=== PATIENT | female | born 1985 | race Caucasian/White ===

== ENCOUNTER 2016-11-07 11:28 | Outpatient (CLI) | payer MEDICAID ==
[~2016-11-07] VITALS: Ht 152.4 cm; Wt 80.4 kg
[~2016-11-07 11:28] MED LIST: ACET500C5 PO; ALPR0.25 PO; CEPH-443 PO
[2016-11-07 11:48] VITALS: Ht 152.4 cm; Wt 80.4 kg
[2016-11-07 13:01] LABS: ADD UMIC YES; URINE BILIRUBIN (Dip) NEGATIVE (NEGATIVE); URINE BLOOD (Dip) TRACE (NEGATIVE); URINE COLOR LT. YELLOW (YELLOW); URINE KETONES (Dip) TRACE (NEGATIVE); URINE LEUKOCYTE ESTERASE (Dip) TRACE (NEGATIVE); URINE NITRITE (Dip) POSITIVE (NEGATIVE); URINE TOTAL PROTEIN (Dip) NEGATIVE (NEGATIVE); URINE UROBILINOGEN (Dip) 0.2 E.U./dL (0.1-1.0)
[2016-11-07 13:09] LABS: BACTERIA,URINE MANY
[2016-11-07 13:10] LABS: URINE RBCS 0-2 /HPF (0)
[2016-11-07 13:14] LABS: BASOPHILS % 0.3 % (0.0-2.0); EOSINOPHILS # 0.2 10^3/ul (0.0-0.5); HEMATOCRIT 31.6 % (37.0-47.0); HEMOGLOBIN 10.7 g/dl (12.0-16.0); LYMPHOCYTES # 1.1 10^3/ul (0.8-2.9); LYMPHOCYTES % 13.8 % (15.0-51.0); MEAN CORPUSCULAR HEMOGLOBIN 30.9 pg (29.0-33.0); MEAN CORPUSCULAR VOLUME 90.9 fl (82.0-101.0); MEAN PLATELET VOLUME 9.4 fl (7.4-10.4); MONOCYTE # 0.5 10^3/ul (0.3-0.9); MONOCYTES % 6.6 % (0.0-11.0); NEUTROPHIL # 6.2 10^3/ul (1.6-7.5); NEUTROPHILS % 77.3 % (39.0-77.0); PLATELET COUNT 190 10^3/UL (140-440); RED BLOOD COUNT 3.48 10^6/ul (4.20-5.40); RED CELL DISTRIBUTION WIDTH 13.9 % (11.5-14.5)
[2016-11-07 13:15] LABS: CONDITION 1
[2016-11-07 13:21] LABS: ALBUMIN 3.3 g/dl (3.3-4.9)
[2016-11-07 13:24] LABS: ALKALINE PHOSPHATASE 101 IU/L (42-121); ASPARTATE AMINO TRANSFERASE 15 IU/L (15-46); BILIRUBIN,INDIRECT 0.1 mg/dl (0-1.1); BILIRUBIN,TOTAL 0.1 mg/dl (0.2-1.3); TOTAL PROTEIN 6.1 g/dl (6.1-8.1)
[2016-11-07 13:25] LABS: ALANINE AMINOTRANSFERASE 14 IU/L (13-69)
--- NOTE | 2016-11-07 13:36 | RADRPT ---
PROCEDURE: US Obstetrical, limited CLINICAL INDICATION: P T L, SIENNA TECHNIQUE: Multiple real-time images were acquired of the patient's maternal abdomen utilizing a curved array transducer. COMPARISON: 10/16/2016 breech FINDINGS: There is a single live intrauterine fetus positioned breech. The placenta is implanted anteriorly and is grade 1. There is no placenta previa or abruptio. The cervical length measures 4.2 cm. There appears to be a sufficient amniotic fluid. The heart rate is 148 beats per minute. Measurements: BPD: 5.32, corresponds to a age of 22 weeks 1 day Head circumference: 19.48, corresponds to a age of 21 weeks 5 days Abdominal circumference: 19.03, corresponds to a age of 23 weeks 5 days Femoral length: 4.01, corresponds to a age of 23 weeks 0 days Average age by ultrasound: 22 weeks 5 days plus or minus 1 week 4 days Estimated weight: 570.4 g IMPRESSION: 1. Single live initiating fetus, breech presentation. 2. Anterior placenta, grade 1, no previa. 3. Estimated age by ultrasound 22 weeks 5 days plus or minus 1 week 4 days. This is compatibl e with adequate growth since the previous sonogram. The estimated date of delivery based on today's sonogram is 03/08/2017. Physician Chetan Date Time Electronically viewed and signed by Physician Chetan on 11/07/2016 13:35 RH/
--- NOTE | 2016-11-07 21:33 | QN ---
Documentation Comment 31 years old female with IUP at 22 wekes and 1 days by today's ultrasound and no care presented with complaint of cramping and spotting. She had moved about one month ago from [place]. Did not know she is . Spotting and cramping started after intercourse last night. She also complains of whole body itching including palms and soles. She denies any rash. She denies any fever, rash, illness, arthritis when she was in [place] or after return. She does not remember any mosquito bite. GA: A&O, NAD Abdomen: Soft, non tender, gravid Fundal height with 22-24 weeks Comparison with prior us in this about 3 weeks go, adequate interval growth. SSE: no blood seen in the vault Cervix looks closed and long No contractions seen on the monitor NST: appropriate for premature fetus at this GA ROCEDURE: US Obstetrical, limited CLINICAL INDICATION: P T L, SIENNA TECHNIQUE: Multiple real-time images were acquired of the patient's maternal abdomen utilizing a curved array transducer. COMPARISON: 10/16/2016 breech FINDINGS: There is a single live intrauterine fetus positioned breech. The placenta is implanted anteriorly and is grade 1. There is no placenta previa or abruptio. The cervical length measures 4.2 cm. There appears to be a sufficient amniotic fluid. The heart rate is 148 beats per minute. Measurements: BPD: 5.32, corresponds to a age of 22 weeks 1 day Head circumference: 19.48, corresponds to a age of 21 weeks 5 days Abdominal circumference: 19.03, corresponds to a age of 23 weeks 5 days Femoral length: 4.01, corresponds to a age of 23 weeks 0 days Average age by ultrasound: 22 weeks 5 days plus or minus 1 week 4 days Estimated weight: 570.4 g IMPRESSION: 1. Single live initiating fetus, breech presentation. 2. Anterior placenta, grade 1, no previa. 3. Estimated age by ultrasound 22 weeks 5 days plus or minus 1 week 4 days. This is compatible with adequate growth since the previous sonogram. The estimated date of delivery based on today's sonogram is 03/08/2017. Physician Chetan Date Time Electronically viewed and signed by Dominik Ford Physician on 11/07/2016 13:35 RH/ CC: AD NOYOLA MD RH positive Assessment: IUP at 22 weeks and 1 days No care post coital spotting, resolved. No evidence of PTL or PPROM Asymptomatic Moved from [place] about one month ago, at risk for Zika. Contacted Department of public health and labs ordered including Zika Rt- PCR of urine and serum as well as IGM for Zika all labs ordered Patient was informed about importance of stablishing care as soon as possibe Resources about clinics that she can start and establish care provided Strict PTL precaution and kick discussed RTC in 5 days for follow up of the lab at Triage Contact clinics MICHAEL to establish care will transfer her records once started care there Whole body itching without rash, LFT and bile acids obtained and sent IDRIS Flores who was fluent in dominican interpreted and patient verbalized understanding all above discussion and precaution AD NOYOLA MD Nov 07, 2016 21:33
[2016-11-09 12:23] LABS: RUBELLA ANTIBODY - IGG 3.39
[2016-11-13 16:25] LABS: CHENODEOXYCHOLIC ACID 3.6 umol/L (< OR = 3.1); CHOLIC ACID <0.5 umol/L (< OR = 1.8); DEOXYCHOLIC ACID 0.5 umol/L (< OR = 2.4); TOTAL BILE ACIDS 4.1 umol/L (< OR = 6.8)
== END 2016-11-07 16:45 | disposition home or self-care (01) ==
LOC: OBT 11:28 → L-D 11:29 → OBT 16:45
PROVIDERS: ATTEND Obstetrics & Gynecology Obstetrics
DX: O26.852 Spotting complicating pregnancy, second trimester (principal); N93.0 Postcoital and contact bleeding; O26.892 Other specified pregnancy related conditions, second trimester; Z3A.22 22 weeks gestation of pregnancy
CPT/HCPCS: 36415; 76815; 76817; 80076; 81001; 83789; 85025; 86592; 86703; 86762; 86900; 86901; 87086; 87340; Z7500; 81003; G0463

== ENCOUNTER 2016-11-11 14:47 | Emergency (ER) | payer MEDICAID ==
[~2016-11-11] VITALS: Wt 77.3 kg
[2016-11-11 14:52] VITALS: Wt 77.3 kg
[2016-11-11] MEDS ORDERED: NITR-58 PO (15:10)
--- NOTE | 2016-11-11 15:17 | ERD ---
ER Documentation Chief Complaint Date/Time DATE: 11/11/16 TIME: 15:14 Chief Complaint needs rx for uti. see note. HPI Patient is a 31-year-old female, with IUP, approximately 22 weeks, who presents to the emergency department for a prescription. Patient was seen by [facility] on 11/07/2016 in labor and delivery and at that time patient was diagnosed with a normal . Patient was called today by labor and delivery and told that her urine culture was positive for infection. Patient was notified that she should go to the ER for prescription of her urinary tract infection. Patient denies any fever, chills, nausea, vomiting, abdominal pain, dysuria or diarrhea. Patient denies any excessive vaginal bleeding, excessive vaginal discharge or pelvic pain. Patient states that her symptoms have improved since previous visit on 11/07/16. ROS All systems reviewed and are negative except as per history of present illness. Medications Home Meds Active Scripts Nitrofurantoin Monohyd Macrocr* (Macrobid*) 100 Mg Capsr, 100 MG PO BID for 7 Days, CAP Prov:KRISTINA KENNEDY PA-C 11/11/16 Reported Medications [none] Unknown Strength No Conflict Check 07/18/16 Discontinued Scripts Acetaminophen* (Tylophen*) 500 Mg Capsule, 1 CAP PO Q6H Y for PAIN AND OR ELEVATED TEMP, #20 CAP Prov:PURNIMA LARES NP 10/17/16 Cephalexin* (Keflex*) 500 Mg Capsule, 500 MG PO QID for 7 Days, CAP Prov:PURNIMA LARES NP 10/17/16 Acetaminophen* (Tylophen*) 500 Mg Capsule, 1 CAP PO Q6H Y for PAIN AND OR ELEVATED TEMP, #20 CAP Prov:PURNIMA LARES NP 07/30/16 Cephalexin* (Keflex*) 500 Mg Capsule, 500 MG PO QID for 7 Days, CAP Prov:PURNIMA LARES NP 07/30/16 Alprazolam* (Xanax*) 0.25 Mg Tablet, 0.25 MG PO Q8H Y for ANXIETY, #10 TAB Prov:PURNIMA LARES NP 07/18/16 Allergies Allergies: Coded Allergies: No Known Allergy (Unverified , 07/18/16) PMhx/Soc History of Surgery: Yes (cholecystectomy) Anesthesia Reaction: No Hx Neurological Disorder: No Hx Respiratory Disorders: No Hx Cardiac Disorders: No Hx Psychiatric Problems: No Hx Miscellaneous Medical Probl: No Hx Alcohol Use: No Hx Substance Use: No Hx Tobacco Use: No Physical Exam Vitals Vital Signs Date Time Temp Pulse Resp B/P Pulse Ox O2 Delivery O2 Flow Rate FiO2 11/11/16 14:52 98.5 89 20 127/62 100 Physical Exam General: Well-developed, well-nourished female. Appears in no acute distress. Head: Normocephalic, atraumatic. Eyes: Pupils are equally reactive bilaterally. EOMs grossly intact. No conjunctival erythema. ENT: Moist mucous membranes. Neck: Supple. No lymphadenopathy or thyromegaly. No meningeal signs. Lungs: Clear to auscultation bilaterally. No rhonchi, wheezing, rales or coarse breath sounds. Heart: Regular rate and rhythm. No murmurs, rubs or gallops. Abdomen: Soft, nontender, and nondistended. No rebound tenderness, no guarding. (-) McBurneys point tenderness. No CVA tenderness. Extremities: No pedal edema, unilateral leg swelling. 5/5 strength in all extremities. Neurologic: Alert and oriented x3. Moving all four extremities. Normal speech. Steady gait. (-) Brudzinski sign- no flexion of the hips and knees noted with neck flexion. (-) Kernigs sign- patient able to extend knee to 180 degrees with hip flexion, no hamstring stiffness noted. Skin: Normal color. Warm and dry. No rashes or lesions. Procedures/MDM MEDICAL DECISION MAKING: This is a 31-year-old female who presents for prescription of positive urine cultures. Patient was seen in labor and delivery on 11/07/16. Patient was called back today for positive urine culture result. Vital signs were reviewed. Patient was afebrile. She was not hypoxic. Upon further evaluation of urine culture results in EMR, it shows that the patient's urine specimen is sensitive to nitrofurantoin. Patient will be given with prescription of nitrofurantoin. I consulted the laborist satellite communications engineer who stated that this medication was safe during . Given these findings, the patients presentation is most consistent with urinary tract infection. I have a much lower clinical concern for pyelonephritis or nephrolithiasis. Low suspicion for placenta previa, placental rupture, vasa previa given that the patient denies any vaginal bleeding. PRESCRIPTIONS: Nitrofurantoin DISCHARGE: At this time, patient is stable for discharge and outpatient management. I have instructed the patient to follow-up with his/her primary care physician in 1-2 days. Patient should repeat UA in 2 weeks to check for resolution of urinary tract infection. If symptoms persist, patient may need to see a specialist for further examinations and testing. I have instructed the patient to promptly return to the ER at any time for any new or worsening symptoms including increased pain, fever, nausea, vomiting, urinary changes or weakness. The patient and/or family expressed understanding of and agreement with this plan. All questions were answered. Home care instructions were provided. Departure Diagnosis: Primary Impression: UTI (urinary tract infection) Urinary tract infection type: site unspecified Hematuria presence: without hematuria Qualified Code: N39.0 - Urinary tract infection without hematuria, site unspecified Additional Impression: Encounter for medication refill Condition: Stable Patient Instructions: Understanding Urinary Tract Infections (UTIs) Referrals: COMMUNITY CLINICS YOU HAVE RECEIVED A MEDICAL SCREENING EXAM AND THE RESULTS INDICATE THAT YOU DO NOT HAVE A CONDITION THAT REQUIRES URGENT TREATMENT IN THE EMERGENCY DEPARTMENT. FURTHER EVALUATION AND TREATMENT OF YOUR CONDITION CAN WAIT UNTIL YOU ARE SEEN IN YOUR DOCTORS OFFICE WITHIN THE NEXT 1-2 DAYS. IT IS YOUR RESPONSIBILITY TO MAKE AN APPOINTMENT FOR FOLOW-UP CARE. IF YOU HAVE A PRIMARY DOCTOR --you should call your primary doctor and schedule an appointment IF YOU DO NOT HAVE A PRIMARY DOCTOR YOU CAN CALL OUR PHYSICIAN REFERRAL HOTLINE AT IF YOU CAN NOT AFFORD TO SEE A PHYSICIAN YOU CAN CHOSE FROM THE FOLLOWING PENDING SALE TO [facility] [address] [facility] [address] [facility] [address] [facility] [address] [facility] [address] [facility]. [facility]. [address] [facility]. [facility] YOU HAVE RECEIVED A MEDICAL SCREENING EXAM AND THE RESULTS INDICATE THAT YOU DO NOT HAVE A CONDITION THAT REQUIRES URGENT TREATMENT IN THE EMERGENCY DEPARTMENT. FURTHER EVALUATION AND TREATMENT OF YOUR CONDITION CAN WAIT UNTIL YOU ARE SEEN IN YOUR DOCTORS OFFICE WITHIN THE NEXT 1-2 DAYS. IT IS YOUR RESPONSIBILITY TO MAKE AN APPOINTMENT FOR FOLOW-UP CARE. IF YOU HAVE A PRIMARY DOCTOR --you should call your primary doctor and schedule and appointment IF YOU DO NOT HAVE A PRIMARY DOCTOR YOU CAN CALL OUR PHYSICIAN REFERRAL HOTLINE AT . IF YOU CAN NOT AFFORD TO SEE A PHYSICIAN YOU CAN CHOSE FROM THE FOLLOWING [facility] INSTITUTIONS: [facility] [address] [place] [address] [facility] [address] [place] [address] [facility] [address] [place] [address] INSTRUMENT ADJUST[place] [address] [facility] [address] [place] [address] OFFICE FAX TOYA MAGALLON [address] [place] [address] [address] [place] [place] [address] [place] [address] [address] [address] [facility], [address], [facility] [address] [address] [place] [address] [facility] [address] [place] [address] [phone] [address] [facility] [address] - [address]ZMA [address], [facility] [address] [address] [address] [facility]. [address], [facility] [id number], [address] [address] [place] [address] Additional Instructions: Llame al doctor MAANA y sridhar kushal ALFONZO PARA DENTRO DE 1-2 RANDALL.Dgale a la secretaria que nosotros le instruimos hacer esta alfonzo.Avise o llame si kennedy condicin se empeora antes de la alfonzo. Regresa aqui si peor o no mejor. Jaye VELA referral listo para doctors. KRISTINA KENNEDY PA-C Nov 11, 2016 15:17
== END 2016-11-11 15:23 | disposition home or self-care (01) ==
LOC: FTE 14:47 → E/R 15:23
DX: O23.42 Unspecified infection of urinary tract in pregnancy, second trimester (principal); Z3A.22 22 weeks gestation of pregnancy; Z76.0 Encounter for issue of repeat prescription
CPT/HCPCS: 99283

== ENCOUNTER 2016-12-18 22:05 | Outpatient (CLI) | payer MEDICAID ==
--- NOTE | 2016-11-07 21:27 | QN ---
AD NOYOLA MD Nov 07, 2016 21:27
[~2016-12-18] VITALS: Ht 152.4 cm; Wt 81.9 kg
[~2016-12-18 22:05] MED LIST changes: -ACET500C5 PO; -ALPR0.25 PO; -CEPH-443 PO; +NITR-58 PO
[2016-12-18 22:14] VITALS: BP 131/59; PULSE 102; RESP 18
[2016-12-18 22:19] LABS: URINE BLOOD (Dip) POC Trace-intact (NEGATIVE)
[2016-12-18] MEDS ORDERED: PRENAT PO (22:19)
--- NOTE | 2016-12-18 23:04 | HP ---
Date/Time of Note Date/Time of Note DATE: 12/18/16 TIME: 23:02 OB - History Hx of Present Free Text/Dictation Pt is a 31yo at 28+1wks GA who presents with c/o abdominal cramping and lower abdominal pain since 1500. Pt denies inciting factors. Last intercourse yesterday morning. Reports normal FM, denies LOF, VB, or dysuria. Hx of full-term followed by an "8 month" PROCEDURE: Ultrasound OB cervical length CLINICAL INDICATION: labor TECHNIQUE: Sonographic evaluation to assess the cervical length was performed. Transabdominal and trans vaginal imaging of the gravid uterus was performed. COMPARISON: OB ultrasound dated 11/07/2016 FINDINGS: Single live intrauterine in cephalic position with cardiac activity at 143 beats per minute is identified. The length of the cervix on transvaginal ultrasound equals 4.3 cm. The placenta is anterior and grade 1 and free of internal cervical os. IMPRESSION: Single live intrauterine . Length of cervix equals 4.3 cm. Care: Good Care Past Family/Social History * Past Medical, Surgical, Family and Obstetric Histories reviewed from chart. OB Admission Exam Vital Signs Vital Signs Vital Signs Date Time Temp Pulse Resp B/P Pulse Ox O2 Delivery O2 Flow Rate FiO2 12/18/16 22:14 98.4 102 18 131/59 Room Air Physical Exam Abdomen: WNL (soft, nontender, neg CVAT b/l) Heart Rate: 130's Accelerations: Accelerations Present Decelerations: No Decelerations Varibility: Moderate Contractions on Admission: None OB Assessment/Plan Other Assessment: Abdominal cramping w/o evidence of PTL Other plan: Given CL >4cm, neg FFN and toco w/o UCs, unlikely pt has PTL FWB reassuring Pt appropriate for d/c home with f/up as scheduled PTL, PPROM precautions reviewed Questions answered to patient's satisfaction RAFFI LARSON MD Dec 18, 2016 23:03
--- NOTE | 2016-12-19 00:13 | RADRPT ---
PROCEDURE: Ultrasound OB cervical length CLINICAL INDICATION: labor TECHNIQUE: Sonographic evaluation to assess the cervical length was performed. Transabdominal and trans vaginal imaging of the gravid uterus was performed. COMPARISON: OB ultrasound dated 11/07/2016 FINDINGS: Single live intrauterine in cephalic position with cardiac activity at 143 beats per minute is identified. The length of the cervix on transvaginal ultrasound equals 4.3 cm. The plac enta is anterior and grade 1 and free of internal cervical os. IMPRESSION: Single live intrauterine . Length of cervix equals 4.3 cm. RPTAT: HJES .Rico Szymanski MD, MD Date Time Electronically viewed and signed by .Rico Szymanski MD, MD on 12/19/2016 00:12 .S/
--- NOTE | 2016-12-19 00:38 | TRIAGE ---
OB Triage Datetime Report Generated by CPN: 12/19/2016 00:38 Datetime: 12/19/2016 00:24 Comments: STRIP REVIEWED BY DR LARSON Datetime: 12/19/2016 00:16 Pain Assessment Pain Scale: 4 Pain Presence: Intermittent Pain Type: Cramping Pain Location: Abdomen Datetime: 12/19/2016 00:00 Stage of : OB Triage Labor Evaluation Frequency: NONE Monitor Mode: External Heart Rate FHR Baseline Rate: 135 Monitor Mode: External US Variability: Moderate 6-25 bpm Accelerations: 15X15 Decelerations: None Datetime: 12/18/2016 23:00 Stage of : OB Triage Labor Evaluation Frequency: NONE Monitor Mode: External Heart Rate FHR Baseline Rate: 135 Monitor Mode: External US Variability: Moderate 6-25 bpm Accelerations: 15X15 Decelerations: None Category: Category I Datetime: 12/18/2016 22:15 Stage of : OB Triage Temperature Route: Oral Pain Assessment Pain Scale: 8 Pain Presence: Intermittent Pain Type: Cramping; Contraction Pain Location: Abdomen Datetime: 12/18/2016 22:12 Assessment Type: Triage Time of Arrival: 12/19/2016 21:58 EGA: 28.2 Arrived By: Wheelchair Arrived From: Home Chief Complaint: ABDOMINAL PAIN Movement: Present Contractions: Regular Time Contractions Began: 12/18/2016 15:00 Contractions: Q5MIN Rupture of Membranes: Denies Vaginal Bleeding: None Vaginal Discharge: Denies Recent Sexual Intercouse: Denies Abdominal Trauma: Not Applicable Patient Complaints: Contractions; Cramping Time Provider Notified: 12/19/2016 22:26 Provider Notified: MARSHA Initial Plan: FFN, CVL Maternal Assessment Level of Consciousness: Fully Conscious DTR's/Clonus: DTRs 2+; No Clonus Headache: Denies Blurred Vision: No Respiratory Effort: Unlabored; Regular Rhythm; Equal Expansion Breath Sounds, Left: Clear and Equal Breath Sounds, Right: Clear and Equal Nausea/Vomiting: Denies RUQ Epigastric Pain: Denies Lower Extremities Edema: None Degree: None Upper Extremities Edema: None Facial Edema: None Fall Risk Assessment History of Falling: (0) No Secondary Diagnosis: (0) No Ambulatory Aid: (0) Bedrest/Nurse Assist IV Therapy: (0) No Gait: (0) Normal/Bedrest/Immobile Mental Status: (0) Oriented to Own Ability Fall Score: 0 Fall Risk Score Definition: No Risk: No action required Datetime: 11/11/2016 10:29 Stage of : Dr Israellobovinny called that she was notified from lab regarding the result on urine culture that showed E coli, pt contacted and informed to come to hospital to be treated for E coli i nfection in the urine. Datetime: 11/07/2016 16:09 Stage of : OB Triage Datetime: 11/07/2016 15:30 Labor Evaluation Frequency: 0 Monitor Mode: External Resting Tone [place]: Relaxed Heart Rate FHR Baseline Rate: 135 Monitor Mode: External US Variability: Moderate 6-25 bpm Decelerations: None Category: Category I Pain Assessment Pain Scale: 0 Pain Presence: None/Denies Pain Goal: 3 Pain Relief Measures: Comfort Measures Datetime: 11/07/2016 14:28 Comments: OFF MONITOR Datetime: 11/07/2016 14:10 Stage of : OB Triage Labor Evaluation Frequency: 0 Monitor Mode: External Duration (sec)2399: 0 Resting Tone [place]: Relaxed Comments: OFF MONITOR Datetime: 11/07/2016 12:45 Labor Evaluation Frequency: 0 Monitor Mode: External Resting Tone [place]: Relaxed Heart Rate FHR Baseline Rate: 145 Monitor Mode: External US Variability: Moderate 6-25 bpm Decelerations: Variable Pain Assessment Pain Scale: 0 Pain Presence: None/Denies Pain Goal: 3 Pain Relief Measures: Comfort Measures Datetime: 11/07/2016 11:57 Stage of : OB Triage Datetime: 11/07/2016 11:44 Stage of : OB Triage Maternal Assessment Level of Consciousness: Fully Conscious DTR's/Clonus: DTRs 2+; No Clonus Headache: Denies Blurred Vision: No Respiratory Effort: Unlabored; Regular Rhythm; Equal Expansion Breath Sounds, Left: Clear and Equal Breath Sounds, Right: Clear and Equal Nausea/Vomiting: Denies RUQ Epigastric Pain: Denies Facial Edema: None Temperature Route: Axillary Fall Risk Assessment History of Falling: (0) No Secondary Diagnosis: (0) No Ambulatory Aid: (0) Bedrest/Nurse Assist IV Therapy: (0) No Gait: (0) Normal/Bedrest/Immobile Mental Status: (0) Oriented to Own Ability Fall Score: 0 Fall Risk Score Definition: No Risk: No action required Labor Evaluation Frequency: 0 Monitor Mode: External Resting Tone [place]: Relaxed Heart Rate FHR Baseline Rate: 135 Monitor Mode: External US Variability: Moderate 6-25 bpm Decelerations: None Category: Category I Pain Assessment Pain Scale: 8 Pain Presence: Intermittent Pain Type: Sharp Pain Location: Abdomen Pain Goal: 3 Pain Relief Measures: Comfort Measures Datetime: 11/07/2016 11:42 Time of Arrival: 11/07/2016 11:25 EGA: 22.2 Arrived By: Ambulatory Arrived From: Home Chief Complaint: C/O SPOTTING THIS AM POSTCOITAL, INTERMITTENT LOWER ABDOMINAL PAIN, DENIES LEAKI NG, C/O ITCHING NO CARE, SEEN ONE TIME PRIOR IN SEPTEMBER DX AND U/S DONE Movement: Present Contractions: Denies/Absent Rupture of Membranes: Denies Vaginal Bleeding: Scant Vaginal Discharge: Present Recent Sexual Intercouse: Yes Abdominal Trauma: Not Applicable Patient Complaints: Cramping Time Provider Notified: 11/07/2016 11:57 Provider Notified: DENNYS Initial Plan: MONITOR, PANEL, BILE ACIDS, LIVER PANEL, ZIKA VIRUS, CL, COMPLETE OB U/S, U /A, URINE CULTURE, STERILE SPEC
== END 2016-12-19 00:35 | disposition home or self-care (01) ==
LOC: L-D 22:05 → OBT 22:05
PROVIDERS: ATTEND Obstetrics & Gynecology
DX: O60.03 Preterm labor without delivery, third trimester (principal); Z3A.28 28 weeks gestation of pregnancy
CPT/HCPCS: 76817; 81003; 82731; Z7500; G0463